=== PATIENT | male | born 1990 | race Caucasian/White ===

== ENCOUNTER 2025-02-10 10:24 | Emergency (ER) | payer BC ==
[~2025-02-10] VITALS: Ht 185.4 cm; Wt 82.9 kg
[2025-02-10] MEDS ORDERED: SODIUM CHLORIDE 0.9% 1,000 ML IV PRN (12:15)
[2025-02-10] MEDS ORDERED: KETOROLAC TROMETHAMINE 30 MG/ML VIAL IV ONE (12:15)
[2025-02-10] MEDS ORDERED: PROCHLORPERAZINE EDISYLATE 10 MG/2 ML VIAL IV ONE (12:15)
[2025-02-10] MEDS ORDERED: DEXAMETHASONE SOD PHOS 10 MG/ML VIAL IV ONE (13:45)
[2025-02-10] MEDS ORDERED: BUTALB-ACETAMI1 EAC2 PO (15:35)
[2025-02-10 15:47] VITALS: BP 105/46
== END 2025-02-10 15:47 | disposition home or self-care (01) ==
LOC: ED 10:24
DX: G43.909 Migraine, unspecified, not intractable, without status migrainosus (principal)
CPT/HCPCS: 96361; 96374; 96375; 99283-25; J0780; J1100; J1200; J1790; J1885; J7030